=== PATIENT | female | born 1935 | race Caucasian/White ===

== ENCOUNTER 2017-04-04 16:19 | Emergency (ER) | payer OTHER ==
[~2017-04-04] VITALS: Ht 160 cm; Wt 71.1 kg
[~2017-04-04 16:19] MED LIST: LEVO-T25 MCG PO
[2017-04-04 17:35] LABS: EOSINOPHIL COUNT 0.1 K/uL (0-0.3); HEMATOCRIT 46.1 % (36.0-46.0); IMMATURE GRANULOCYTE (%) 0.3 % (0.0-0.7); INSTRUMENT ABS NEUTROPHIL CT 3.3 K/uL; LYMPHOCYTE COUNT 2.5 K/uL (1.0-2.8); MCH 30.3 PG (29.0-34.0); MCHC 34.3 G/DL (30.0-36.0); MCV 88.3 FL (83-99); MEAN PLAT.VOLUME 10.1 uM^3 (9.5-12.4); MONOCYTE (%) 7.7 % (3-12); MONOCYTE COUNT 0.5 K/uL (0-0.8); NEUTROPHIL (%) 51.5 % (45-76); NEUTROPHIL COUNT 3.3 K/uL (1.8-6.4); PLATELET COUNT 218 K/uL (156-360); RBC DIS.WIDTH-CV 12.7 % (11.8-14.6); RBC DIS.WIDTH-SD 41.4 % (39-53); RED BLOOD COUNT 5.22 M/uL (3.80-5.20); WHITE BLOOD COUNT 6.5 K/uL (4.1-10.2)
[2017-04-04 17:38] LABS: ADD MIUA? YES; BILIRUBIN NEGATIVE; BLOOD NEGATIVE; COLOR YELLOW ((YELLOW)); GLUCOSE (STRIP) NEGATIVE; KETONES NEGATIVE; LEUKOCYTES MODERATE; NITRITE NEGATIVE; PROTEIN (STRIP) NEGATIVE; UROBILINOGEN 0.2 MG/DL (0.2-1.0)
[2017-04-04 17:43] LABS: BACTERIA RARE /HPF; EPITHELIAL CELLS RARE /HPF; MUCUS NONE SEEN /LPF; RED BLOOD CELLS 0-5 /HPF (0-5); WHITE BLOOD CELLS 30-40 /HPF (0-5)
[2017-04-04 17:53] LABS: CHLORIDE 110 mEq/L (99-109); SODIUM 144 mEq/L (136-147)
[2017-04-04] MEDS ORDERED: CHEMO DRUG IM (17:53)
[2017-04-04 17:54] LABS: GLUCOSE 112 mg/dL (70-99)
[2017-04-04 17:56] LABS: ANION GAP 13 MEQ/L (2-14)
[2017-04-04 17:58] LABS: GFR ESTIMATE (CALCULATED) > 59 mL/min/
[2017-04-04 17:59] LABS: UREA NITROGEN (BUN) 11 mg/dL (9-23)
[2017-04-04] MEDS ORDERED: KEFLEX500 MG PO (18:29)
[2017-04-04 19:23] VITALS: BP 168/98
== END 2017-04-04 19:24 | disposition home or self-care (01) ==
LOC: EME 16:19
PROVIDERS: Physician Assistant
DX: R03.0 Elevated blood-pressure reading, without diagnosis of hypertension (principal); N39.0 Urinary tract infection, site not specified; C50.919 Malignant neoplasm of unspecified site of unspecified female breast
CPT/HCPCS: 71020; 80048; 81003; 83605; 85025; 87040; 87077; 87086; 87186; 93005; 99281; 99284; J0696

== ENCOUNTER 2018-06-27 19:08 | Inpatient (IN) | payer OTHER ==
[~2018-06-27] VITALS: Ht 172.7 cm; Wt 52.0 kg
[~2018-06-27 19:08] MED LIST changes: +ANASTROZOLE1 MG PO; +CHEMO DRUG IM; +FEMARA2.5 MG PO; +KEFLEX500 MG PO
[2018-06-27 20:24] LABS: HEMATOCRIT 38.9 % (36.0-46.0); HEMOGLOBIN 13.8 G/DL (11.9-15.5); MCH 33.3 PG (29.0-34.0); MCHC 35.5 G/DL (30.0-36.0); PLATELET COUNT 237 K/uL (156-360); RBC DIS.WIDTH-CV 11.7 % (11.8-14.6); RBC DIS.WIDTH-SD 40.1 % (39-53); RED BLOOD COUNT 4.14 M/uL (3.80-5.20); WHITE BLOOD COUNT 7.7 K/uL (4.1-10.2)
[2018-06-27 20:34] LABS: CHLORIDE 99 mEq/L (99-109); POTASSIUM 4.3 mEq/L (3.7-5.4); SODIUM 133 mEq/L (136-147)
[2018-06-27 20:35] LABS: GLUCOSE 103 mg/dL (70-99)
[2018-06-27 20:39] LABS: CREATININE 0.7 mg/dL (0.6-1.3); GFR ESTIMATE (CALCULATED) > 59 mL/min/
[2018-06-27 20:40] LABS: UREA NITROGEN (BUN) 15 mg/dL (9-23)
[2018-06-27 20:51] LABS: TROP-I INTERPRETATION NEGATIVE; TROPONIN-I 0.01 ng/mL (0.0-0.30)
[2018-06-27] MEDS ORDERED: COLACE100 MG PO (23:27)
[2018-06-27] MEDS ORDERED: OXYCODONE HCL5 MG PO (23:27)
[2018-06-27] MEDS ORDERED: SILVER SULFADIA50 GM TP (23:27)
[2018-06-27] MEDS ORDERED: VITAMIN D-3 401 EACH PO (23:28)
[2018-06-27] MEDS ORDERED: ADVIL200 MG PO (23:28)
[2018-06-27] MEDS ORDERED: ASCORBIC ACID100 MG PO (23:28)
[2018-06-27] MEDS ORDERED: DAILY VITE1 EAC1 PO (23:29)
[2018-06-28 03:33] VITALS: BP 166/81
[2018-06-28 05:35] LABS: TROP-I INTERPRETATION NEGATIVE; TROPONIN-I < 0.01 ng/mL (0.0-0.30)
[2018-06-28 06:55] VITALS: BP 123/73
[2018-06-28 15:20] VITALS: BP 119/73
[2018-06-28 23:03] VITALS: BP 124/66
[2018-06-29 06:41] VITALS: BP 111/62
[2018-06-29 16:32] VITALS: BP 138/85
[2018-06-29 23:16] VITALS: BP 121/82
[2018-06-30 07:21] VITALS: BP 108/60
[2018-06-30 16:17] VITALS: BP 139/86
[2018-07-01 00:10] VITALS: BP 142/70
[2018-07-01 06:47] VITALS: BP 131/75
[2018-07-01 07:52] LABS: BASOPHIL (%) 0.3 % (0-1); EOSINOPHIL (%) 1.8 % (0-5); EOSINOPHIL COUNT 0.1 K/uL (0-0.3); HEMATOCRIT 37.4 % (36.0-46.0); HEMOGLOBIN 12.7 G/DL (11.9-15.5); IMMATURE GRANULOCYTE (%) 0.7 % (0.0-0.7); LYMPHOCYTE (%) 19.9 % (15-42); LYMPHOCYTE COUNT 1.2 K/uL (1.0-2.8); MCH 32.6 PG (29.0-34.0); MCV 96.1 FL (83-99); MONOCYTE (%) 10.4 % (3-12); MONOCYTE COUNT 0.6 K/uL (0-0.8); NEUTROPHIL (%) 66.9 % (45-76); NEUTROPHIL COUNT 4.1 K/uL (1.8-6.4); PLATELET COUNT 247 K/uL (156-360); RBC DIS.WIDTH-CV 11.9 % (11.8-14.6); RBC DIS.WIDTH-SD 41.9 % (39-53); RED BLOOD COUNT 3.89 M/uL (3.80-5.20); WHITE BLOOD COUNT 6.1 K/uL (4.1-10.2)
[2018-07-01 08:17] LABS: ALBUMIN 3.3 G/DL (3.2-4.8); ALKALINE PHOSPHATASE 58 IU/L (3-129); ALT (GPT) 13 IU/L (3-49); AST (GOT) 27 IU/L (2-34); CHLORIDE 98 MEQ/L (99-109); CREATININE 0.6 MG/DL (0.6-1.3); GFR ESTIMATE (CALCULATED) > 59 mL/min/; GLUCOSE 96 mg/dL (70-99); POTASSIUM 4.3 MEQ/L (3.7-5.4); SODIUM 134 MEQ/L (136-147); TOTAL BILIRUBIN 0.8 MG/DL (0.0-1.0); TOTAL PROTEIN 5.7 G/DL (6.4-8.3); UREA NITROGEN (BUN) 7 mg/dL (9-23)
[2018-07-01 15:19] VITALS: BP 143/88
[2018-07-02 00:21] VITALS: BP 114/65
[2018-07-02 06:07] LABS: BASOPHIL (%) 0.7 % (0-1); EOSINOPHIL (%) 1.1 % (0-5); EOSINOPHIL COUNT 0.1 K/uL (0-0.3); HEMATOCRIT 35.5 % (36.0-46.0); IMMATURE GRANULOCYTE (%) 0.7 % (0.0-0.7); LYMPHOCYTE (%) 13.5 % (15-42); LYMPHOCYTE COUNT 0.8 K/uL (1.0-2.8); MCH 32.5 PG (29.0-34.0); MCHC 33.8 G/DL (30.0-36.0); MCV 96.2 FL (83-99); MONOCYTE (%) 13.1 % (3-12); MONOCYTE COUNT 0.8 K/uL (0-0.8); NEUTROPHIL (%) 70.9 % (45-76); NEUTROPHIL COUNT 4.1 K/uL (1.8-6.4); PLATELET COUNT 231 K/uL (156-360); RBC DIS.WIDTH-CV 11.8 % (11.8-14.6); RBC DIS.WIDTH-SD 41.4 % (39-53); RED BLOOD COUNT 3.69 M/uL (3.80-5.20); WHITE BLOOD COUNT 5.7 K/uL (4.1-10.2)
[2018-07-02 06:32] LABS: CHLORIDE 98 MEQ/L (99-109); CREATININE 0.6 MG/DL (0.6-1.3); GFR ESTIMATE (CALCULATED) > 59 mL/min/; GLUCOSE 92 mg/dL (70-99); POTASSIUM 3.9 MEQ/L (3.7-5.4); SODIUM 136 MEQ/L (136-147); UREA NITROGEN (BUN) 10 mg/dL (9-23)
[2018-07-02 07:25] VITALS: BP 142/83
[2018-07-02 15:25] VITALS: BP 156/83
[2018-07-03 00:01] VITALS: BP 138/85
[2018-07-03 07:27] VITALS: BP 167/96
[2018-07-03] MEDS ORDERED: MORPHINE CON20 MG/M1 PO (09:08)
[2018-07-03] MEDS ORDERED: ATIVAN0.5 MG PO (09:08)
[2018-07-03] MEDS ORDERED: ANASPAZ0.125 MG PO (09:08)
== END 2018-07-03 15:34 | disposition hospice, home (50) | DRG 194 ==
LOC: EME 19:08 → 5EAST 06-28 02:22 → EDOF 06-28 02:22 → 5EAST 06-28 03:24 → ENPENDDIS 07-03 → 5EAST 07-03 15:34
PROVIDERS: Hospitalist; Physician Assistant Medical; Student in an Organized Health Care Education/Training Program
DX: J18.9 Pneumonia, unspecified organism (principal); C50.911 Malignant neoplasm of unspecified site of right female breast; C78.02 Secondary malignant neoplasm of left lung; C78.01 Secondary malignant neoplasm of right lung; C79.51 Secondary malignant neoplasm of bone; R09.02 Hypoxemia; J90 Pleural effusion, not elsewhere classified; E44.0 Moderate protein-calorie malnutrition; Z68.1 Body mass index [BMI] 19.9 or less, adult; L59.8 Other specified disorders of the skin and subcutaneous tissue related to radiation; E03.9 Hypothyroidism, unspecified; I10 Essential (primary) hypertension; Z98.82 Breast implant status; Z17.0 Estrogen receptor positive status [ER+]; Z66 Do not resuscitate; Z51.5 Encounter for palliative care
CPT/HCPCS: 71045; 71275; 80048; 80053; 83605; 84484; 85025; 85027; 85379; 87040; 93005; 93306; 94760; 94799; 99281; 99285; J1644; J1940; J1956; J7030; Q0167